=== PATIENT | female | born 1955 | race Hispanic/Latino ===

== ENCOUNTER → 2021-03-12 | Outpatient (CLI) | payer OTHER ==
[~2021-03-12] MED LIST: ERGO500014 PO; FENO145T26 PO; FLUO20CA30 PO; LEVO500T2 PO; LISI-809 PO; MECL-160 PO; MONT10TA32 PO; SIMV-43 PO
== END | disposition home or self-care (01) ==
LOC: RAH 12:38
PROVIDERS: ATTEND Orthopaedic Surgery
DX: M17.12 Unilateral primary osteoarthritis, left knee (principal); M24.852 Other specific joint derangements of left hip, not elsewhere classified
CPT/HCPCS: 73700

== ENCOUNTER 2022-02-17 07:44 | Observation (INO) | payer OTHER ==
[2022-02-11 10:54] LABS: BASOPHILS % (AUTO) 0.8 % (0.0-5.0); EOSINOPHILS % (AUTO) 3.3 % (0.0-8.0); HEMATOCRIT 40.6 % (36-48); LYMPHOCYTES % (AUTO) 35.4 % (21.0-51.0); MEAN CORPUSCULAR HEMOGLOBIN 28.7 pg (27.0-33.0); MEAN CORPUSCULAR VOLUME 86.9 fL (79-99); MONOCYTES % (AUTO) 5.1 % (3.0-13.0); NEUTROPHILS % (AUTO) 55.1 % (40.0-77.0); PLATELET COUNT (AUTO) 268 K/uL (130-400); RED BLOOD CELL COUNT(AUTO) 4.67 MIL/uL (4.00-5.50); RED CELL DISTRIBUTION WIDTH 12.4 % (11.0-15.5); WHITE BLOOD COUNT (AUTO) 6.4 K/uL (4.8-10.8)
[2022-02-11 11:08] LABS: CREATININE 0.8 mg/dL (0.5-1.5); POTASSIUM 4.4 mmol/L (3.5-5.1)
[2022-02-11 11:42] LABS: INR 0.93 (0.85-1.15); PROTHROMBIN TIME 10.2 SEC (9.6-11.6)
[2022-02-11 11:44] LABS: PARTIAL THROMBOPLASTIN TIME 28.6 SEC (26.3-35.5)
[2022-02-16 08:57] VITALS: BP 173/81
[~2022-02-17] VITALS: Ht 160 cm; Wt 88.5 kg
[2022-02-17] VITALS (26 sets, daily range): BP systolic 114–153; BP diastolic 45–77
[~2022-02-17 07:44] MED LIST changes: +BUPR-113 PO; +CETI-89 PO; +CLON1TAB12 PO; -ERGO500014 PO; +FAMO20TA8 PO; -FENO145T26 PO; -FLUO20CA30 PO; +LACTATED RINGERS 1000ML 1,000 ML IV SCH; -LEVO500T2 PO; -LISI-809 PO; +LOSA25TA41 PO; -MECL-160 PO; +MELA5TAB14 PO; +METF-444 PO; -MONT10TA32 PO
[2022-02-17] MEDS ORDERED: 0.9%NACL 1000ML 1,000 ML IV ONE (08:38)
[2022-02-17] MEDS: CEFAZOLIN SODIUM 1 GM VIAL IVP SCH ×3 (09:00→19:43)
[2022-02-17] MEDS ORDERED: AEC81 PO ×2 (09:03)
[2022-02-17] MEDS ORDERED: TRAM50TA4 PO ×2 (09:03)
[2022-02-17] MEDS ORDERED: ROPIVICAINE 250MG+KETOROLAC 15MG+EPINEPHRINE 0.3+CLONIDINE 80 IV PRN ×10 (11:30→15:01)
[2022-02-17] MEDS ORDERED: TRANEXAMIC ACID 1000MG/10ML ONE (12:41)
[2022-02-17] MEDS ORDERED: MEPERIDINE-PF 25 MG/ML SYG ONE ×3 (15:33→16:09)
[2022-02-17] MEDS ORDERED: NEOSTIGMINE 5MG/5ML SYR IV ONE (15:34)
[2022-02-17] MEDS ORDERED: GLYCOPYRROLATE 1 MG/5 ML SYRINGE ONE (15:34)
[2022-02-17] MEDS ORDERED: MIDAZOLAM HCL 1 MG/ML 2ML VIAL ONE (15:34)
[2022-02-17] MEDS ORDERED: PROPOFOL 10 MG/ML 20ML VIAL IV ONE (15:34)
[2022-02-17] MEDS ORDERED: SUCCINYLCHOLINE CHLORIDE 20 MG/ML 10 ML VIAL ONE (15:34)
[2022-02-17] MEDS ORDERED: DEXAMETHASONE SOD PHOSPHATE 10MG/ML 1ML VIAL ONE (15:34)
[2022-02-17] MEDS ORDERED: FENTANYL CITRATE PF 50 MCG/1 ML 2ML VIAL ONE (15:35)
[2022-02-17] MEDS ORDERED: ROCURONIUM 10MG/1ML SYR 10 MG/ML ML ONE (15:35)
[2022-02-17] MEDS ORDERED: ONDANSETRON 4MG INJ ONE (15:35)
[2022-02-17] MEDS ORDERED: POTASSIUM CHLORIDE 20MEQ/100ML 100 ML IV PRN (16:00)
[2022-02-17] MEDS ORDERED: LIDOCAINE HCL-MPF 1% 2ML VIAL IV PRN (16:00)
[2022-02-17] MEDS: ACETAMINOPHEN 500 MG TABLET PO SCH ×2 (16:00→23:19)
[2022-02-17] MEDS ORDERED: POTASSIUM CHLORIDE 10% ELIXIR 20 MEQ/15 ML UDCUP PO PRN (16:00)
[2022-02-17] MEDS ORDERED: FERROUS FUMARATE 324 MG TABLET PO PRN (16:00)
[2022-02-17] MEDS ORDERED: ONDANSETRON 4MG INJ IVP PRN (16:00)
[2022-02-17] MEDS: 0.9%NACL 1000ML 1,000 ML IV SCH (16:00)
[2022-02-17] MEDS ORDERED: MEPERIDINE-PF 25 MG/ML SYG IVP PRN (16:00)
[2022-02-17] MEDS ORDERED: HYDROCODONE/ACETAMINOPHEN 5/325 MG TAB PO PRN (16:00)
[2022-02-17] MEDS ORDERED: KCL 20 MEQ ERTAB PO PRN (16:00)
[2022-02-17] MEDS: INSULIN HUMULIN R 100 UNIT/ML 3ML SQ SCH ×2 (16:30→21:00)
[2022-02-17] MEDS: TRAMADOL HCL 50 MG TABLET PO SCH ×2 (18:14→23:19)
[2022-02-17] MEDS: HYDROCODONE/ACETAMINOPHEN 10/325 MG TAB PO PRN (19:02)
[2022-02-17] MEDS: CLONAZEPAM 1MG TAB PO SCH (19:43)
[2022-02-17] MEDS: ASPIRIN 81 MG EC TAB PO SCH (19:43)
[2022-02-17] MEDS: FAMOTIDINE 20MG TAB PO SCH (19:43)
[2022-02-17] MEDS: METFORMIN HCL 500 MG TABLET PO SCH (19:43)
[2022-02-17] MEDS: Melatonin 5 MG PO SCH (19:43)
[2022-02-18] MEDS: 0.9%NACL 1000ML 1,000 ML IV SCH ×2 (01:50→12:00)
[2022-02-18 04:00] VITALS: BP 123/54
[2022-02-18] MEDS: TRAMADOL HCL 50 MG TABLET PO SCH ×4 (04:34→23:07)
[2022-02-18] MEDS: CEFAZOLIN SODIUM 1 GM VIAL IVP SCH (04:34)
[2022-02-18 04:58] LABS: CREATININE 0.7 mg/dL (0.5-1.5); POTASSIUM 4.5 mmol/L (3.5-5.1)
[2022-02-18 05:28] LABS: HEMATOCRIT 35.5 % (36-48); MEAN CORPUSCULAR HEMOGLOBIN 28.4 pg (27.0-33.0); MEAN CORPUSCULAR HGB CONC 32.7 g/dL (32.0-36.0); RED BLOOD CELL COUNT(AUTO) 4.08 MIL/uL (4.00-5.50); WHITE BLOOD COUNT (AUTO) 11.8 K/uL (4.8-10.8)
[2022-02-18] MEDS: INSULIN HUMULIN R 100 UNIT/ML 3ML SQ SCH ×4 (05:55→19:52)
[2022-02-18] MEDS: LOSARTAN 25 MG TABLET PO SCH (08:06)
[2022-02-18] MEDS: ASPIRIN 81 MG EC TAB PO SCH ×2 (08:06→19:43)
[2022-02-18] MEDS: BUPROPION HCL 150 MG TABLET.SA PO SCH (08:06)
[2022-02-18] MEDS: ACETAMINOPHEN 500 MG TABLET PO SCH ×3 (08:06→23:07)
[2022-02-18] MEDS: POLYETHYLENE GLYCOL 3350 17 GM POWD.PACK PO SCH (08:06)
[2022-02-18] MEDS: FAMOTIDINE 20MG TAB PO SCH ×2 (08:06→19:43)
[2022-02-18 08:39] VITALS: BP 131/62
[2022-02-18 11:16] VITALS: BP 103/72
[2022-02-18 17:41] VITALS: BP 131/65
[2022-02-18] MEDS: CLONAZEPAM 1MG TAB PO SCH (19:43)
[2022-02-18] MEDS: METFORMIN HCL 500 MG TABLET PO SCH (19:43)
[2022-02-18] MEDS: Melatonin 5 MG PO SCH (19:50)
[2022-02-18 20:46] VITALS: BP 123/54
[2022-02-19 00:25] VITALS: BP 153/65
[2022-02-19 04:19] VITALS: BP 142/57
[2022-02-19] MEDS: TRAMADOL HCL 50 MG TABLET PO SCH ×2 (05:17→12:14)
[2022-02-19] MEDS: INSULIN HUMULIN R 100 UNIT/ML 3ML SQ SCH ×2 (05:42→11:30)
[2022-02-19 08:04] VITALS: BP 146/71
[2022-02-19] MEDS: BUPROPION HCL 150 MG TABLET.SA PO SCH (09:14)
[2022-02-19] MEDS: FAMOTIDINE 20MG TAB PO SCH (09:14)
[2022-02-19] MEDS: LOSARTAN 25 MG TABLET PO SCH (09:15)
[2022-02-19] MEDS: ASPIRIN 81 MG EC TAB PO SCH (09:16)
[2022-02-19] MEDS: POLYETHYLENE GLYCOL 3350 17 GM POWD.PACK PO SCH (09:16)
[2022-02-19] MEDS: ACETAMINOPHEN 500 MG TABLET PO SCH (09:17)
[2022-02-19] MEDS: HYDROCODONE/ACETAMINOPHEN 10/325 MG TAB PO PRN (09:23)
[2022-02-19 11:23] VITALS: BP 140/60
[2022-02-19 16:08] VITALS: BP 123/64
[2022-02-20] MEDS ORDERED: BISACODYL 10 MG SUPP.RECT RC PRN (16:00)
== END 2022-02-19 16:30 | disposition home or self-care (01) ==
LOC: DAH 07:44 → DAHIP 07:45 → DAH 07:45 → 4BH 16:49
PROVIDERS: ADMIT Orthopaedic Surgery; ATTEND Orthopaedic Surgery
DX: M17.11 Unilateral primary osteoarthritis, right knee (principal); Z20.822 Contact with and (suspected) exposure to COVID-19; Z96.652 Presence of left artificial knee joint; Z79.899 Other long term (current) drug therapy; Z98.890 Other specified postprocedural states
CPT/HCPCS: 27447; 36415 ×2; 64447; 76942; 80048 ×2; 82948 ×10; 85025; 85027; 85610; 85730; 87635; 87641; 93005; 96374; 96375; 96376; 97039 ×4; 97116 ×4; 97161; 97530 ×3; A4215; A4221; A4222; A4223; A4600; A4649 ×7; A4663; A5120; C1776; C9803; G0378 ×48; J0171; J0330; J0690 ×2; J0735; J1100; J1885; J2175 ×4; J2250; J2405 ×2; J2704; J2710; J2795; J3010; J3490 ×2; J7030

== ENCOUNTER 2022-02-27 20:10 | Emergency (ER) | payer OTHER ==
[~2022-02-27] VITALS: Ht 160 cm; Wt 85.7 kg
[~2022-02-27 20:10] MED LIST changes: +AEC81 PO; -LACTATED RINGERS 1000ML 1,000 ML IV SCH; +TRAM50TA4 PO
[2022-02-27] MEDS ORDERED: IBUPROFEN 800 MG TAB PO ONE (20:30)
[2022-02-27] MEDS ORDERED: ACETAMINOPHEN 500 MG TABLET PO ONE (20:30)
[2022-02-27] MEDS ORDERED: 0.9%NACL 1000ML 1,000 ML IV SCH (20:30)
[2022-02-27 20:52] LABS: BASOPHILS % (AUTO) 0.5 % (0.0-5.0); EOSINOPHILS % (AUTO) 1.9 % (0.0-8.0); HEMATOCRIT 36.6 % (36-48); MEAN CORPUSCULAR HEMOGLOBIN 28.5 pg (27.0-33.0); MEAN CORPUSCULAR HGB CONC 32.5 g/dL (32.0-36.0); MEAN CORPUSCULAR VOLUME 87.6 fL (79-99); MONOCYTES % (AUTO) 6.7 % (3.0-13.0); NEUTROPHILS % (AUTO) 73.5 % (40.0-77.0); PLATELET COUNT (AUTO) 361 K/uL (130-400); RED BLOOD CELL COUNT(AUTO) 4.18 MIL/uL (4.00-5.50); RED CELL DISTRIBUTION WIDTH 13.1 % (11.0-15.5); WHITE BLOOD COUNT (AUTO) 9.3 K/uL (4.8-10.8)
[2022-02-27] MEDS ORDERED: PHARMACY COMMUNICATION MISC SCH (21:00)
[2022-02-27 21:10] LABS: CREATININE 0.9 mg/dL (0.5-1.5)
[2022-02-27 21:19] LABS: ALBUMIN 3.5 g/dL (3.5-5.0); BILIRUBIN,TOTAL 0.4 mg/dL (0.2-1.0)
[2022-02-27] MEDS ORDERED: ACET-2247 PO (21:59)
[2022-02-27 22:28] VITALS: BP 146/63
== END 2022-02-27 23:01 | disposition home or self-care (01) ==
LOC: EDH 20:10
DX: B34.9 Viral infection, unspecified (principal); E86.0 Dehydration; R50.9 Fever, unspecified; E66.9 Obesity, unspecified; Z68.33 Body mass index [BMI] 33.0-33.9, adult; Z20.822 Contact with and (suspected) exposure to COVID-19; F41.9 Anxiety disorder, unspecified; F32.A Depression, unspecified; E78.00 Pure hypercholesterolemia, unspecified; I10 Essential (primary) hypertension; Z96.651 Presence of right artificial knee joint; Z88.6 Allergy status to analgesic agent; Z88.8 Allergy status to other drugs, medicaments and biological substances; Z79.82 Long term (current) use of aspirin; Z79.899 Other long term (current) drug therapy; Z79.84 Long term (current) use of oral hypoglycemic drugs; Z98.890 Other specified postprocedural states; Z90.49 Acquired absence of other specified parts of digestive tract
CPT/HCPCS: 36415; 71045; 80053; 83605; 84484; 85025; 86140; 87040 ×2; 87635; 87804 ×2; 93971; 96360; 96361; 99285; C9803; J7030

== ENCOUNTER 2022-03-01 19:29 | Observation (INO) | payer OTHER ==
[~2022-03-01] VITALS: Ht 160 cm; Wt 85.9 kg
[~2022-03-01 19:29] MED LIST changes: +ACET-2247 PO
[2022-03-01] MEDS ORDERED: 0.9%NACL 1000ML 1,000 ML IV ONE ×2 (20:00→21:28)
[2022-03-01] MEDS ORDERED: ACETAMINOPHEN 500 MG TABLET PO ONE (20:00)
[2022-03-01 20:09] LABS: BASOPHILS % (AUTO) 0.4 % (0.0-5.0); EOSINOPHILS % (AUTO) 0.1 % (0.0-8.0); HEMATOCRIT 34.1 % (36-48); MEAN CORPUSCULAR HEMOGLOBIN 28.5 pg (27.0-33.0); MEAN CORPUSCULAR HGB CONC 33.1 g/dL (32.0-36.0); MEAN CORPUSCULAR VOLUME 85.9 fL (79-99); MONOCYTES % (AUTO) 7.3 % (3.0-13.0); NEUTROPHILS % (AUTO) 73.9 % (40.0-77.0); PLATELET COUNT (AUTO) 320 K/uL (130-400); RED BLOOD CELL COUNT(AUTO) 3.97 MIL/uL (4.00-5.50); RED CELL DISTRIBUTION WIDTH 13.1 % (11.0-15.5); WHITE BLOOD COUNT (AUTO) 9.4 K/uL (4.8-10.8)
[2022-03-01 20:22] LABS: POTASSIUM 3.7 mmol/L (3.5-5.1)
[2022-03-01 20:31] LABS: ALBUMIN 3.4 g/dL (3.5-5.0); TOTAL PROTEIN, SERUM 8.2 g/dL (6.0-8.3)
[2022-03-01 20:38] LABS: B-TYPE NATRIURETIC PEPTIDE 36 pg/mL (0-100)
[2022-03-01] MEDS ORDERED: ACETAMINOPHEN 500 MG TABLET ONE (21:28)
[2022-03-01 21:58] LABS: APPEARANCE,URINE CLEAR (CLEAR); BILIRUBIN,URINE NEGATIVE (NEGATIVE); COLOR,URINE YELLOW (YELLOW); GLUCOSE, URINE (UA) NEGATIVE (NEGATIVE); KETONES,URINE NEGATIVE (NEGATIVE); LEUKOCYTE ESTERASE ,URINE NEGATIVE (NEGATIVE); NITRATE,URINE NEGATIVE (NEGATIVE); OCCULT BLOOD,URINE TRACE-INTACT (NEGATIVE); PH,URINE 7.5 (5.0-8.0); PROTEIN,URINE NEGATIVE (NEGATIVE); UROBILINOGEN,URINE 0.2 mg/dL (0.2-1.0)
[2022-03-01 22:03] LABS: BACTERIA,URINE None Seen /HPF (None Seen); RBC,URINE 0-1 /HPF (0-1); SQUAMOUS EPITHELIAL CELL,UR None Seen /HPF (0-2); WBC,URINE 0-1 /HPF (0-1)
[2022-03-02] MEDS ORDERED: ZOLPIDEM TARTRATE 5 MG TAB PO PRN
[2022-03-02] MEDS ORDERED: HYDRALAZINE 20MG/ML VIAL IV PRN
[2022-03-02] MEDS ORDERED: LACTULOSE 20 GM/30 ML UDCUP PO PRN
[2022-03-02] MEDS ORDERED: ACETAMINOPHEN 325 MG TAB PO PRN
[2022-03-02] MEDS ORDERED: ONDANSETRON 4MG INJ IV PRN
[2022-03-02] MEDS ORDERED: HYDROCODONE/ACETAMINOPHEN 5/325 MG TAB PO PRN
[2022-03-02] MEDS ORDERED: IOHEXOL 350 MG/ML 100ML INFUS..BTL IV ONE (00:04)
[2022-03-02] MEDS: CLINDAMYCIN IVPB 600MG/50ML 50 ML IV SCH ×2 (00:42→08:38)
[2022-03-02] MEDS: 0.9%NACL 1000ML 1,000 ML IV SCH ×3 (00:43→19:51)
[2022-03-02] MEDS ORDERED: PHARMACY COMMUNICATION MISC SCH (04:30)
[2022-03-02 07:59] LABS: ALBUMIN 3.1 g/dL (3.5-5.0); BILIRUBIN,DIRECT 0.2 mg/dL (0.0-0.3); MAGNESIUM 2.1 mg/dL (1.80-2.40); TOTAL PROTEIN, SERUM 7.3 g/dL (6.0-8.3)
[2022-03-02] MEDS: ENOXAPARIN SODIUM 40 MG/0.4 ML SYRINGE SQ SCH (09:00)
[2022-03-02] MEDS: FAMOTIDINE 20MG TAB PO SCH ×2 (09:00→19:49)
[2022-03-02] MEDS: CETIRIZINE HCL 5 MG TABLET PO SCH (11:24)
[2022-03-02] MEDS ORDERED: GADOTERATE MEGLUMINE 5 MMOL/10 ML VIAL IV ONE (11:45)
[2022-03-02] MEDS: PHARMACY COMMUNICATION MISC SCH ×3 (11:45→23:24)
[2022-03-02] MEDS ORDERED: ACETAMINOPHEN WITH CODEINE 1 TAB TAB PO PRN (12:45)
[2022-03-02 14:13] VITALS: BP 145/70
[2022-03-02] MEDS: INSULIN HUMULIN R 100 UNIT/ML 3ML SQ SCH ×3 (14:40→19:51)
[2022-03-02] MEDS: TRAMADOL HCL 50 MG TABLET PO SCH ×3 (14:42→19:51)
[2022-03-02 16:00] VITALS: BP 133/64
[2022-03-02] MEDS: CEFTRIAXONE 1G VIAL IVP SCH (16:07)
[2022-03-02] MEDS: DOXYCYCLINE 100MG+NS 250ML IV SCH (16:07)
[2022-03-02] MEDS: ACETAMINOPHEN 325 MG TAB PO PRN (19:50)
[2022-03-02 20:00] VITALS: BP 138/70
[2022-03-02] MEDS ORDERED: CLONAZEPAM 1MG TAB PO SCH (21:00)
[2022-03-02] MEDS ORDERED: SIMVASTATIN 20 MG TABLET PO SCH (21:00)
[2022-03-02] MEDS ORDERED: MELATONIN 5 MG PO SCH (21:00)
[2022-03-02 23:22] VITALS: BP 127/58
[2022-03-03] MEDS: TRAMADOL HCL 50 MG TABLET PO SCH ×3 (02:21→15:20)
[2022-03-03 03:16] VITALS: BP 120/60
[2022-03-03] MEDS: DOXYCYCLINE 100MG+NS 250ML IV SCH ×2 (03:34→16:01)
[2022-03-03] MEDS: 0.9%NACL 1000ML 1,000 ML IV SCH ×2 (03:34→15:20)
[2022-03-03 03:38] LABS: HEMATOCRIT 31.2 % (36-48); MEAN CORPUSCULAR HEMOGLOBIN 28.5 pg (27.0-33.0); MEAN CORPUSCULAR HGB CONC 32.4 g/dL (32.0-36.0); MEAN CORPUSCULAR VOLUME 88.1 fL (79-99); RED BLOOD CELL COUNT(AUTO) 3.54 MIL/uL (4.00-5.50); RED CELL DISTRIBUTION WIDTH 13.2 % (11.0-15.5); WHITE BLOOD COUNT (AUTO) 4.4 K/uL (4.8-10.8)
[2022-03-03 03:53] LABS: HEMOGLOBIN A1C 6.1 % (4.0-6.0)
[2022-03-03 04:05] LABS: CREATININE 0.9 mg/dL (0.5-1.5); MAGNESIUM 2.1 mg/dL (1.80-2.40); PHOSPHORUS 4.4 mg/dL (2.5-4.9); POTASSIUM 4.1 mmol/L (3.5-5.1)
[2022-03-03] MEDS: INSULIN HUMULIN R 100 UNIT/ML 3ML SQ SCH ×2 (05:50→11:30)
[2022-03-03 07:30] VITALS: BP 142/73
[2022-03-03] MEDS: CETIRIZINE HCL 5 MG TABLET PO SCH (08:46)
[2022-03-03] MEDS: FAMOTIDINE 20MG TAB PO SCH (08:47)
[2022-03-03] MEDS: ENOXAPARIN SODIUM 40 MG/0.4 ML SYRINGE SQ SCH (08:48)
[2022-03-03] MEDS: ACETAMINOPHEN 325 MG TAB PO PRN (08:52)
[2022-03-03] MEDS ORDERED: LOSARTAN 25 MG TABLET PO SCH (09:00)
[2022-03-03] MEDS ORDERED: ASPIRIN 81 MG EC TAB PO SCH (09:00)
[2022-03-03] MEDS ORDERED: BUPROPION HCL 150 MG TABLET.SA PO SCH (09:00)
[2022-03-03 11:30] VITALS: BP 136/80
[2022-03-03] MEDS ORDERED: LEVO750T46 PO (15:08)
[2022-03-03] MEDS: CEFTRIAXONE 1G VIAL IVP SCH (15:23)
[2022-03-03 15:30] VITALS: BP 123/73
[2022-03-03] MEDS ORDERED: 0.9% NACL 250ML 250 ML ONE (15:45)
[2022-03-11 15:13] LABS: DENGUE IGG ANTIBODY <1.00 ISR (<1.65); DENGUE IGM ANTIBODY 1.28 ISR (<1.65)
== END 2022-03-03 17:43 | disposition home or self-care (01) ==
LOC: EDH 19:29 → EDHIP 03-02 00:09 → 4DH 03-02 14:16
PROVIDERS: ADMIT Internal Medicine Critical Care Medicine; ATTEND Internal Medicine Critical Care Medicine
DX: J18.9 Pneumonia, unspecified organism (principal); Z20.822 Contact with and (suspected) exposure to COVID-19; N39.0 Urinary tract infection, site not specified; B96.89 Other specified bacterial agents as the cause of diseases classified elsewhere; I10 Essential (primary) hypertension; E78.5 Hyperlipidemia, unspecified; E11.9 Type 2 diabetes mellitus without complications; R06.02 Shortness of breath; K21.9 Gastro-esophageal reflux disease without esophagitis; R11.2 Nausea with vomiting, unspecified; E78.00 Pure hypercholesterolemia, unspecified; E66.9 Obesity, unspecified; F32.A Depression, unspecified; F41.8 Other specified anxiety disorders; Z79.82 Long term (current) use of aspirin; Z79.899 Other long term (current) drug therapy; Z96.651 Presence of right artificial knee joint
CPT/HCPCS: 96361 ×4; 99285; 82550; 84484; 80053; 83880; 85025; 85378; 87040 ×2; 87088; 87880; 87804 ×2; 83605 ×2; 81001; 36415 ×3; 87635; 71045; 73562; 71270; 93970; 93005; 84145 ×2; 96372 ×2; 96365; 96366 ×4; 96375; 96367; 80076; 83735 ×2; 87077; 87186; 82948 ×4; 73723; 96376; 83036; 84100; 80048; 85027; C9803; J7030 ×4; G0378 ×42; J0696 ×2; J3490 ×5; J1650 ×2; Q9967; A9575; J7050

== ENCOUNTER 2023-03-25 14:34 | Emergency (ER) | payer OTHER, MEDICARE ==
[~2023-03-25] VITALS: Ht 160 cm; Wt 88.5 kg
[~2023-03-25 14:34] MED LIST changes: +LEVO750T68 PO
[2023-03-25] MEDS ORDERED: ONDANSETRON 4MG INJ IVP ONE (15:00)
[2023-03-25] MEDS ORDERED: LACTATED RINGERS 1000ML 1,000 ML IV ONE (15:00)
[2023-03-25 16:47] LABS: BASOPHILS % (AUTO) 0.4 % (0.0-5.0); EOSINOPHILS % (AUTO) 0.4 % (0.0-8.0); HEMATOCRIT 39.7 % (36-48); MEAN CORPUSCULAR HEMOGLOBIN 28.6 pg (27.0-33.0); MEAN CORPUSCULAR HGB CONC 33.5 g/dL (32.0-36.0); MEAN CORPUSCULAR VOLUME 85.4 fL (79-99); MONOCYTES % (AUTO) 5.1 % (3.0-13.0); NEUTROPHILS % (AUTO) 85.7 % (40.0-77.0); PLATELET COUNT (AUTO) 241 K/uL (130-400); RED BLOOD CELL COUNT(AUTO) 4.65 MIL/uL (4.00-5.50); WHITE BLOOD COUNT (AUTO) 9.2 K/uL (4.8-10.8)
[2023-03-25 17:03] LABS: CARBON DIOXIDE 26 mmol/L (21-32); CHLORIDE 100 mmol/L (101-111); CREATININE 0.9 mg/dL (0.5-1.5); GLOMERULAR FILTR. RATE CALC 69 mL/min (>90); GLUCOSE,RANDOM 101 mg/dL (70-105); POTASSIUM 3.7 mmol/L (3.5-5.1); SODIUM SERUM 137 mmol/L (136-145); UREA NITROGEN, BLOOD 12 mg/dL (7-18)
[2023-03-25 17:07] LABS: ALANINE AMINOTRANSFERASE 31 U/L (12-78); ALBUMIN 3.5 g/dL (3.5-5.0); ASPARTATE AMINOTRANSFERASE 14 U/L (10-37); TOTAL PROTEIN, SERUM 8.4 g/dL (6.0-8.3)
[2023-03-25 17:15] LABS: LIPASE < 50 U/L (114-286)
[2023-03-25 17:27] LABS: APPEARANCE,URINE CLEAR (CLEAR); BILIRUBIN,URINE NEGATIVE (NEGATIVE); COLOR,URINE LIGHT-YELLOW (YELLOW); GLUCOSE, URINE (UA) NEGATIVE (NEGATIVE); KETONES,URINE NEGATIVE (NEGATIVE); LEUKOCYTE ESTERASE ,URINE NEGATIVE Leu/uL (NEGATIVE); NITRATE,URINE NEGATIVE (NEGATIVE); OCCULT BLOOD,URINE NEGATIVE (NEGATIVE); PROTEIN,URINE NEGATIVE (NEGATIVE); UROBILINOGEN,URINE 0.2 mg/dL (0.2-1.0)
[2023-03-25 17:38] LABS: SQUAMOUS EPITHELIAL CELL,UR RARE /HPF (0-2); WBC,URINE 0-1 /HPF (0-1)
[2023-03-25] MEDS ORDERED: IBUPROFEN 600 MG TABLET PO ONE (18:00)
[2023-03-25 18:14] VITALS: BP 115/78; PULSE 78; RESP 18; O2SAT 98
== END 2023-03-25 18:15 | disposition home or self-care (01) ==
LOC: EDH 14:34
DX: U07.1 COVID-19 (principal); R19.7 Diarrhea, unspecified; E66.9 Obesity, unspecified; E78.00 Pure hypercholesterolemia, unspecified; I10 Essential (primary) hypertension; M19.90 Unspecified osteoarthritis, unspecified site; Z79.82 Long term (current) use of aspirin; Z79.899 Other long term (current) drug therapy; Z88.5 Allergy status to narcotic agent; Z90.49 Acquired absence of other specified parts of digestive tract; Z68.34 Body mass index [BMI] 34.0-34.9, adult
CPT/HCPCS: 36415; 80053; 81001; 83605; 83690; 85025; 87040; 87635; 87804; 96361; 96374; C9803; J2405; J7120

== ENCOUNTER 2024-01-27 20:27 | Observation (INO) | payer OTHER, MEDICARE ==
[~2024-01-27] VITALS: Ht 160 cm; Wt 89.1 kg
[~2024-01-27 20:27] MED LIST changes: -MELA5TAB14 PO; +MELA5TAB66 PO
[2024-01-27 20:47] LABS: BASOPHILS # (AUTO) 0.06 K/uL (0.00-0.20); BASOPHILS % (AUTO) 0.8 % (0.0-5.0); EOSINOPHILS # (AUTO) 0.29 K/uL (0.00-0.70); EOSINOPHILS % (AUTO) 4.1 % (0.0-8.0); IMMATURE GRANULOCYTE ABSOLUTE 0.02 K/uL (0-1); LYMPHOCYTES # (AUTO) 2.5 K/uL (1.0-4.8); LYMPHOCYTES % (AUTO) 34.9 % (21.0-51.0); MEAN CORPUSCULAR HEMOGLOBIN 29.6 pg (27.0-33.0); MEAN CORPUSCULAR HGB CONC 34.1 g/dL (32.0-36.0); MEAN CORPUSCULAR VOLUME 86.7 fL (79-99); MONOCYTES # (AUTO) 0.5 K/uL (0.1-1.0); MONOCYTES % (AUTO) 7.1 % (3.0-13.0); NEUTROPHILS # (AUTO) 3.8 K/uL (1.8-7.7); NEUTROPHILS % (AUTO) 52.8 % (40.0-77.0); PLATELET COUNT (AUTO) 248 K/uL (130-400); WHITE BLOOD COUNT (AUTO) 7.2 K/uL (4.8-10.8)
[2024-01-27 20:56] LABS: INR <= 0.93 (0.85-1.15); PROTHROMBIN TIME 10.3 SEC (9.6-11.6)
[2024-01-27 21:02] LABS: CREATININE 0.9 mg/dL (0.5-1.0); POTASSIUM 3.7 mmol/L (3.5-5.1)
[2024-01-27 21:09] LABS: B-TYPE NATRIURETIC PEPTIDE 27 pg/mL (0-100)
[2024-01-27 21:11] LABS: ALBUMIN 3.3 g/dL (3.5-5.0); BILIRUBIN,TOTAL 0.2 mg/dL (0.2-1.0); TOTAL PROTEIN, SERUM 7.4 g/dL (6.0-8.3)
[2024-01-27 21:28] LABS: D-DIMER 1111 ng/mL (0-500)
[2024-01-27] MEDS ORDERED: IOHEXOL-350 75 ML VIAL IV ONE (21:59)
[2024-01-27] MEDS ORDERED: ONDANSETRON 4MG INJ IVP PRN (22:00)
[2024-01-27] MEDS ORDERED: HYDRALAZINE 20MG/ML VIAL IV PRN (22:00)
[2024-01-27] MEDS ORDERED: DOCUSATE SODIUM 100 MG CAP PO PRN (22:00)
[2024-01-27] MEDS ORDERED: LACTULOSE 20 GM/30 ML UDCUP PO PRN (22:00)
[2024-01-27] MEDS ORDERED: ACETAMINOPHEN 650 MG SUPPOSITORY RC PRN (22:00)
[2024-01-27] MEDS: ASPIRIN 325MG TAB PO ONE (22:48)
[2024-01-27 23:45] VITALS: BP 150/76; PULSE 75; RESP 20
[2024-01-28] VITALS (15 sets, daily range): BP systolic 109–136; BP diastolic 54–72; PULSE 62–82; RESP 16–19; O2SAT 97–98
[2024-01-28] MEDS: HEPARIN 5,000 UNIT VIAL SQ SCH (00:26)
[2024-01-28] MEDS: TEMAZEPAM 15 MG CAPSULE PO PRN (00:28)
[2024-01-28] MEDS: ATORVASTATIN 40 MG TABLET PO SCH ×2 (00:29→20:06)
[2024-01-28] MEDS: DOXYCYCLINE 100MG+NS 250ML 250 ML IV SCH (01:42)
[2024-01-28] MEDS: CEFTRIAXONE 1G VIAL IVPB SCH (01:42)
[2024-01-28 01:44] LABS: RAPID GROUP A STREP negative (NEGATIVE)
[2024-01-28 01:52] LABS: SARS-CoV-2, RNA, NAAT NEGATIVE SARS CoV-2 (NEGATIVE)
[2024-01-28 01:55] LABS: INFLUENZA TYPE A Negative For Type A (NEGATIVE); INFLUENZA TYPE B Negative For Type B (NEGATIVE)
[2024-01-28 02:15] LABS: ADD UA MICROSCOPIC YES; APPEARANCE,URINE CLEAR (CLEAR); BILIRUBIN,URINE NEGATIVE (NEGATIVE); COLOR,URINE LIGHT-YELLOW (YELLOW); GLUCOSE, URINE (UA) NEGATIVE (NEGATIVE); KETONES,URINE NEGATIVE (NEGATIVE); LEUKOCYTE ESTERASE ,URINE 25 Leu/uL (NEGATIVE); NITRATE,URINE NEGATIVE (NEGATIVE); OCCULT BLOOD,URINE NEGATIVE (NEGATIVE); PH,URINE 5.5 (5.0-8.0); PROTEIN,URINE NEGATIVE (NEGATIVE); UROBILINOGEN,URINE 0.2 mg/dL (0.2-1.0)
[2024-01-28 02:17] LABS: BACTERIA,URINE None Seen /HPF (None Seen); SQUAMOUS EPITHELIAL CELL,UR Rare /HPF (0-2)
[2024-01-28] MEDS: IPRATROPIUM 0.5 MG/2.5 ML INH IH SCH (02:42)
[2024-01-28] MEDS: BUDESONIDE 0.5 MG/2 ML INH IH SCH (02:42)
[2024-01-28] MEDS: ALBUTEROL 0.083% 2.5 MG/3 ML INH IH SCH (02:42)
[2024-01-28 04:25] LABS: BASOPHILS # (AUTO) 0.04 K/uL (0.00-0.20); BASOPHILS % (AUTO) 0.7 % (0.0-5.0); EOSINOPHILS # (AUTO) 0.25 K/uL (0.00-0.70); EOSINOPHILS % (AUTO) 4.2 % (0.0-8.0); HEMATOCRIT 35.9 % (36-48); IMMATURE GRANULOCYTE ABSOLUTE 0.01 K/uL (0-1); LYMPHOCYTES # (AUTO) 2.8 K/uL (1.0-4.8); LYMPHOCYTES % (AUTO) 46.6 % (21.0-51.0); MEAN CORPUSCULAR HEMOGLOBIN 28.7 pg (27.0-33.0); MEAN CORPUSCULAR HGB CONC 33.7 g/dL (32.0-36.0); MEAN CORPUSCULAR VOLUME 85.1 fL (79-99); MONOCYTES # (AUTO) 0.5 K/uL (0.1-1.0); MONOCYTES % (AUTO) 7.9 % (3.0-13.0); NEUTROPHILS # (AUTO) 2.4 K/uL (1.8-7.7); NEUTROPHILS % (AUTO) 40.4 % (40.0-77.0); PLATELET COUNT (AUTO) 217 K/uL (130-400); RED BLOOD CELL COUNT(AUTO) 4.22 MIL/uL (4.00-5.50); WHITE BLOOD COUNT (AUTO) 5.9 K/uL (4.8-10.8)
[2024-01-28 04:58] LABS: CREATININE 0.9 mg/dL (0.5-1.0); MAGNESIUM 2.1 mg/dL (1.80-2.40); PHOSPHORUS 4.5 mg/dL (2.5-4.9); POTASSIUM 4.6 mmol/L (3.5-5.1); THYROID STIMULATING HORMONE 4.01 uIU/mL (0.36-3.74)
[2024-01-28 05:41] LABS: HEMOGLOBIN A1C 5.9 % (4.0-6.0)
[2024-01-28] MEDS: INSULIN HUMULIN R 100 UNIT/ML 3ML SQ SCH (05:51)
[2024-01-28] MEDS: GEMFIBROZIL 600 MG TABLET PO SCH (06:41)
[2024-01-28] MEDS: PANTOPRAZOLE 40 MG TAB DR PO SCH (09:03)
[2024-01-28] MEDS: ASPIRIN 81MG CHEW TAB PO SCH (09:04)
[2024-01-28] MEDS: ACETAMINOPHEN 325 MG TAB PO PRN (11:34)
[2024-01-28] MEDS: SIMVASTATIN 20 MG TABLET PO SCH (20:06)
[2024-01-28] MEDS: CETIRIZINE HCL 5 MG TABLET PO SCH (20:06)
[2024-01-28] MEDS: CLONAZEPAM 1MG TAB PO SCH (22:56)
[2024-01-28] MEDS: MELATONIN 5 MG TABLET PO SCH (22:57)
[2024-01-29] VITALS (11 sets, daily range): BP systolic 128–145; BP diastolic 43–70; PULSE 61–78; RESP 16–19; O2SAT 96–99
[2024-01-29 03:55] LABS: HEMATOCRIT 33.8 % (36-48); MEAN CORPUSCULAR HEMOGLOBIN 29.2 pg (27.0-33.0); MEAN CORPUSCULAR VOLUME 85.8 fL (79-99); RED BLOOD CELL COUNT(AUTO) 3.94 MIL/uL (4.00-5.50); RED CELL DISTRIBUTION WIDTH 12.2 % (11.0-15.5); WHITE BLOOD COUNT (AUTO) 4.9 K/uL (4.8-10.8)
[2024-01-29 04:05] LABS: CREATININE 0.9 mg/dL (0.5-1.0); POTASSIUM 4.1 mmol/L (3.5-5.1)
[2024-01-29] MEDS: ASPIRIN 81 MG EC TAB PO SCH (09:00)
[2024-01-29] MEDS: BUPROPION HCL 150 MG TABLET.SA PO SCH (09:00)
[2024-01-29] MEDS: FAMOTIDINE 20MG TAB PO SCH (09:00)
[2024-01-29] MEDS: LOSARTAN 25 MG TABLET PO SCH (09:30)
[2024-01-29] MEDS: REGADENOSON 0.4 MG/5 ML PF SYG IVP SCH (13:02)
[2024-01-29] MEDS: CALCIUM CARB 500MG PO SCH (20:30)
[2024-01-29] MEDS ORDERED: ATORVASTATIN 20 MG TABLET PO SCH (21:00)
[2024-01-30] VITALS (9 sets, daily range): BP systolic 119–150; BP diastolic 50–70; PULSE 61–81; RESP 18; O2SAT 97–98
[2024-01-30] MEDS: IPRATROPIUM/ALBUTEROL SULFATE 3 ML SOLUTION IH PRN (06:48)
== END 2024-01-30 15:29 | disposition home or self-care (01) ==
LOC: EDH 20:27 → EDHIP 21:58 → 4CH 22:41
PROVIDERS: ADMIT Internal Medicine; ATTEND Internal Medicine
DX: R07.89 Other chest pain (principal); Z20.822 Contact with and (suspected) exposure to COVID-19; J18.9 Pneumonia, unspecified organism; K92.2 Gastrointestinal hemorrhage, unspecified; E11.65 Type 2 diabetes mellitus with hyperglycemia; E11.22 Type 2 diabetes mellitus with diabetic chronic kidney disease; I12.9 Hypertensive chronic kidney disease with stage 1 through stage 4 chronic kidney disease, or unspecified chronic kidney disease; N18.2 Chronic kidney disease, stage 2 (mild); N30.00 Acute cystitis without hematuria; R79.89 Other specified abnormal findings of blood chemistry; E66.9 Obesity, unspecified; E78.00 Pure hypercholesterolemia, unspecified; E78.1 Pure hyperglyceridemia; E83.51 Hypocalcemia; E88.09 Other disorders of plasma-protein metabolism, not elsewhere classified; F41.9 Anxiety disorder, unspecified; M79.604 Pain in right leg; M79.605 Pain in left leg; F32.A Depression, unspecified; K21.9 Gastro-esophageal reflux disease without esophagitis; M19.90 Unspecified osteoarthritis, unspecified site; Z68.34 Body mass index [BMI] 34.0-34.9, adult; Z79.82 Long term (current) use of aspirin; Z79.899 Other long term (current) drug therapy; Z96.653 Presence of artificial knee joint, bilateral; Z88.5 Allergy status to narcotic agent
CPT/HCPCS: 99285; 83735 ×2; 84484 ×2; 80061; 80053; 83880; 85025 ×2; 85378; 85610; 36415 ×3; 71045; 71270; 93970; 93005; 96372 ×2; 96365; 96368; 83036; 84443; 84100; 80048 ×2; 87071; 87880; 87205; 87804 ×2; 82948 ×10; 81001; 87635; 93017; 78452; 93306; 94664; 96376; 85027; 87088; 96366; G0378 ×60; Q9967; J0696 ×3; J3490 ×2; J1644 ×5; A9500 ×2; J2785; 94640; 96367; 96374; 96375

== ENCOUNTER → 2024-08-25 | Outpatient (CLI) | payer OTHER ==
[~2024-08-25] MED LIST changes: -SIMV-43 PO
--- NOTE | 2024-08-25 12:12 | HMCIMG ---
Superficial ultrasound for possible hematoma- mid abdomen Findings: No fluid collections or masses are seen. Significantly, there is no evidence of hematoma. No increased fluid throughout the visualized tissue planes is identified. No lymphadenopathy is identified. Impression: No evidence of hematoma or fluid collections or other abnormalities.
== END | disposition home or self-care (01) ==
LOC: RAH 11:02
PROVIDERS: ATTEND Family Medicine
DX: K43.9 Ventral hernia without obstruction or gangrene (principal)
CPT/HCPCS: 76705